=== PATIENT | female | born 1960 | race Caucasian/White ===

== ENCOUNTER 2016-08-02 17:47 | Emergency (ER) | payer OTHER ==
[~2016-08-02] VITALS: Ht 165.1 cm; Wt 77.1 kg
[~2016-08-02 17:47] MED LIST: ALPR0.5T PO; CYCL10TA2 PO; ESTR1TAB3 PO; OMEP40CA5 PO; RANI150T6 PO
[2016-08-02 18:09] VITALS: BP 134/90
--- NOTE | 2016-08-02 18:24 | PHYS DOC ---
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 Patient states that she has no other injuries or concerns at this time. She states that her last tetanus shot is been greater than 10 years. Review of Systems Review of Systems Constitutional: Denies fever or chills [] Eyes: Denies change in visual acuity, redness, or eye pain [] HENT: Denies nasal congestion or sore throat [] Respiratory: Denies cough or shortness of breath [] Cardiovascular: No additional information not addressed in HPI [] GI: Denies abdominal pain, nausea, vomiting, bloody stools or diarrhea [] : Denies dysuria or hematuria [] Musculoskeletal: Denies back pain or joint pain [] Integument: Denies rash or skin lesions [] Neurologic: Denies headache, focal weakness or sensory changes [] Endocrine: Denies polyuria or polydipsia [] Current Medications Current Medications Current Medications Medications (Trade) Dose Ordered Sig/Valeria Start Time Stop Time Status Last Admin Dose Admin Diphtheria/ Tetanus/Acell Pertussis (Boostrix) 0.5 ml ONCE ONCE 08/02/16 18:15 08/02/16 18:16 UNV Lidocaine/ Epinephrine (Xylocaine 1%-Epi 1:100,000) 20 ml 1X ONCE 08/02/16 18:15 08/02/16 18:16 UNV Silver Nitrate/ Potassium Nitrate 2 each 1X ONCE 08/02/16 18:15 08/02/16 18:16 UNV Allergies Allergies Allergies Coded Allergies Type Severity Reaction Last Updated Verified Iodine and Iodide Containing Produc Allergy Severe hives 04/21/14 Yes codeine Allergy Severe makes pain 04/21/14 Yes heparin Allergy Intermediate 07/04/15 Yes Physical Exam Physical Exam Constitutional: Well developed, well nourished, no acute distress, non-toxic appearance. HENT: Normocephalic, atraumatic, bilateral external ears normal, oropharynx moist, no oral exudates, nose normal. [] Eyes: PERRLA, EOMI, conjunctiva normal, no discharge. [] Neck: Normal range of motion, no tenderness, supple, no stridor. [] Cardiovascular:Heart rate regular rhythm, no murmur [] Lungs & Thorax: Bilateral breath sounds clear to auscultation [] Abdomen: Bowel sounds normal, soft, no tenderness, no masses, no pulsatile masses. [] Skin: Warm, dry, no erythema, no rash. [] Back: No tenderness, no CVA tenderness. [] Extremities: Right thumb with a 2 cm avulsion to the lateral aspect of the distal phalanx that extends minimally into the dermis. There is some punctate bleeding from 2 vessels. There is no involvement of the cuticle, nail or nailbed. There is no joint space involvement. Patient is able to flex and extend of the IPJ. Thumb is neurovascularly intact with capillary refill less than 2 seconds. Neurologic: Alert and oriented X 3, normal motor function, normal sensory function, no focal deficits noted. [] Psychologic: Affect normal, judgement normal, mood normal. [] Current Patient Data Vital Signs Vital Signs Date Time Temp Pulse Resp B/P Pulse Ox O2 Delivery O2 Flow Rate FiO2 08/02/16 18:09 91 16 95 Room Air EKG EKG [] Radiology/Procedures Radiology/Procedures Procedure note: Site of the punctate bleed/avulsion was anesthetized with 1% lidocaine with epinephrine. So nitrate stick was used to applied to the area the bleeding. Hemostasis was achieved. A nonstick dressing was applied with bulky bandaging over top of the dressing. Patient tolerated the procedure well. Course & Med Decision Making Course & Med Decision Making Pertinent Labs and Imaging studies reviewed. (See chart for details) [] Dragon Disclaimer Dragon Disclaimer This electronic medical record was generated, in whole or in part, using a voice recognition dictation system. Departure Departure Impression: Primary Impression: Laceration Disposition: 01 HOME, SELF-CARE Condition: IMPROVED Referrals: LEXIE ALAS MD (PCP) Patient Instructions: Deep Skin Avulsion, Diphtheria Toxoid; Tetanus Toxoid Adsorbed, DT, Td Additional Instructions: 1. Keep this dressing on for the next 2-3 days. Preferably for the next 3 days. Change the external dressing if it becomes wet. 2. You received a tetanus shot here in the emergency Department today. 3. Contact your primary care doctor's office in the morning to schedule follow- up appointment for wound check on Wednesday or Wednesday. LUCAS DALAL Aug 02, 2016 18:24
[2016-08-02] MEDS ORDERED: LIDOCAINE 1%/EPI 1:100,000 20 ML VIAL. IJ ONE (18:30)
[2016-08-02] MEDS ORDERED: DIPHTH,PERTUSS(ACELL),TET TOX 0.5 ML DISP.SYRIN. VAX IM ONE (18:30)
[2016-08-02] MEDS ORDERED: SILVER NITRATE STICK TP ONE (18:30)
== END 2016-08-02 18:58 | disposition home or self-care (01) ==
LOC: ER 17:47
DX: S61.011A Laceration without foreign body of right thumb without damage to nail, initial encounter (principal); K21.9 Gastro-esophageal reflux disease without esophagitis; K58.9 Irritable bowel syndrome, unspecified; Z88.8 Allergy status to other drugs, medicaments and biological substances; Z88.9 Allergy status to unspecified drugs, medicaments and biological substances; Z88.5 Allergy status to narcotic agent; W26.8XXA Contact with other sharp object(s), not elsewhere classified, initial encounter; Y93.89 Activity, other specified; Y92.89 Other specified places as the place of occurrence of the external cause; Y99.8 Other external cause status
CPT/HCPCS: 12001; 90471; 90715; 99283; J3490

== ENCOUNTER 2016-11-22 15:48 | Emergency (ER) | payer OTHER ==
[~2016-11-22] VITALS: Ht 165.1 cm; Wt 77.1 kg
[2016-11-22 16:15] VITALS: BP 146/85
[2016-11-22] MEDS ORDERED: SULF1TAB24 PO (16:44)
--- NOTE | 2016-11-22 16:45 | PHYS DOC ---
Past Medical History Past Medical History: GERD, IBS, Other Additional Past Medical Histor: esophageal spasms, herpes, R thumb numbness, anaphalaxsis Past Surgical History: Appendectomy, Cholecystectomy, Tonsillectomy, Tubal ligation, Other Additional Past Surgical Histo: ablation, bladder sling, LEAP, L knee Alcohol Use: Occasionally Drug Use: None Adult General Chief Complaint Chief Complaint: INSECT BITE HPI HPI Patient is a 55 year old female presents emergency department stating that something had bit her in her left posterior thigh area approximately 3-4 days ago. She states the area has been burning and itching and very irritated. She states the area has become increasingly red. Patient denies any drainage or discharge coming from the site. Patient denies any numbness or tingling coming from the lower extremity. Peripheral pulses are 2+ cap refill brisk less than 2 seconds. Patient's tetanus immunization is less than 2 years ago. Review of Systems Review of Systems Constitutional: Denies fever or chills [] Eyes: Denies change in visual acuity, redness, or eye pain [] HENT: Denies nasal congestion or sore throat [] Respiratory: Denies cough or shortness of breath [] Cardiovascular: No additional information not addressed in HPI [] GI: Denies abdominal pain, nausea, vomiting, bloody stools or diarrhea [] : Denies dysuria or hematuria [] Musculoskeletal: Denies back pain or joint pain [] Integument: Denies rash or skin lesions. Complaint of insect bite to the left posterior leg. Neurologic: Denies headache, focal weakness or sensory changes [] Endocrine: Denies polyuria or polydipsia [] Allergies Allergies Allergies Coded Allergies Type Severity Reaction Last Updated Verified Iodine and Iodide Containing Produc Allergy Severe hives 04/21/14 Yes codeine Allergy Severe makes pain 04/21/14 Yes heparin Allergy Intermediate 07/04/15 Yes tree nut Allergy Unknown 11/22/16 Yes Physical Exam Physical Exam Constitutional: Well developed, well nourished, no acute distress, non-toxic appearance. [] HENT: Normocephalic, atraumatic, bilateral external ears normal, oropharynx moist, no oral exudates, nose normal. [] Eyes: PERRLA, EOMI, conjunctiva normal, no discharge. [] Neck: Normal range of motion, no tenderness, supple, no stridor. [] Cardiovascular:Heart rate regular rhythm Lungs & Thorax: No respiratory distress noted Skin: Warm, dry, no erythema, no rash. Patient with redness approximate size of a baseball to the left posterior thigh. No drainage or induration noted. The area appears to be red warm to touch. Back: No tenderness Extremities: No tenderness, no cyanosis, no clubbing, ROM intact, no edema. [] Neurologic: Alert and oriented X 3, normal motor function, normal sensory function, no focal deficits noted. [] Psychologic: Affect normal, judgement normal, mood normal. [] Current Patient Data Vital Signs Vital Signs Date Time Temp Pulse Resp B/P (MAP) Pulse Ox O2 Delivery O2 Flow Rate FiO2 11/22/16 16:15 98.4 93 18 98 Room Air 98.4 EKG EKG [] Radiology/Procedures Radiology/Procedures [] Course & Med Decision Making Course & Med Decision Making Pertinent Labs and Imaging studies reviewed. (See chart for details) Patient was instructed to keep the area clean dry and cool. She was recommended Benadryl to help with itching and irritation. She was instructed this medication will cause drowsiness do not take any be alert and oriented. Recommended cleaning the site with soap and water and applying antibiotic ointment if the area she'll open and start draining. Patient will be placed on Bactrim. Signs symptoms to return back to emergency department been provided. Patient agrees with discharge instructions treatment regimens and follow-up recommendations. [] Dragon Disclaimer Dragon Disclaimer This electronic medical record was generated, in whole or in part, using a voice recognition dictation system. Departure Departure Impression: Primary Impression: Cellulitis Disposition: 01 HOME, SELF-CARE Condition: STABLE Referrals: LEXIE ALAS MD (PCP) Patient Instructions: Cellulitis, [id number] Additional Instructions: Keep the area clean and dry. Clean the site with soap and water and apply antibiotic ointment to the area if it should open up. Benadryl for itching and irritation. This medication will cause drowsiness do not take any be alert and oriented. Antibiotic as prescribed. Tylenol or ibuprofen for pain and discomfort. Keep the areas cool as possible. Follow-up to primary care physician next 3-5 days. Return back to emergency prior signs symptoms of become worse. Scripts Sulfamethoxazole/Trimethoprim (BACTRIM DS TABLET) 1 Each Tablet 1 TAB PO BID, #20 TAB Prov: STEPHEN SALAZAR APRN 11/22/16 STEPHEN SALAZAR APRN Nov 22, 2016 16:45
== END 2016-11-22 16:46 | disposition home or self-care (01) ==
LOC: ER 15:48
DX: L03.116 Cellulitis of left lower limb (principal); K21.9 Gastro-esophageal reflux disease without esophagitis; K58.9 Irritable bowel syndrome, unspecified; Z90.49 Acquired absence of other specified parts of digestive tract; Z96.0 Presence of urogenital implants; Z88.5 Allergy status to narcotic agent; Z88.8 Allergy status to other drugs, medicaments and biological substances; Z91.018 Allergy to other foods; W57.XXXA Bitten or stung by nonvenomous insect and other nonvenomous arthropods, initial encounter; Y93.89 Activity, other specified; Y92.89 Other specified places as the place of occurrence of the external cause; Y99.8 Other external cause status
CPT/HCPCS: 99283

== ENCOUNTER 2017-07-20 18:54 | Inpatient (IN) | payer OTHER ==
[2017-07-20 19:41] LABS: ADD MAN DIFF? NO
[2017-07-20 19:44] LABS: BASO # 0.1 x10^3/uL (0.0-0.2); BASO % 1 % (0-3); EOS # 0.1 x10^3/uL (0.0-0.7); EOS % 2 % (0-3); HEMOGLOBIN 14.2 g/dL (12.0-15.5); LYMPH # 2.7 x10^3/uL (1.0-4.8); LYMPH % 42 % (24-48); MEAN CORPUSCULAR HEMOGLOBIN 30 pg (25-35); MEAN CORPUSCULAR HGB CONC 35 g/dL (31-37); MEAN CORPUSCULAR VOLUME 87 fL (79-100); MONO # 0.4 x10^3/uL (0.0-1.1); MONO % 6 % (0-9); NEUT # 3.2 x10^3uL (1.8-7.7); NEUT % 49 % (31-73); PLATELET COUNT 282 x10^3/uL (140-400); RED BLOOD COUNT 4.73 x10^6/uL (3.50-5.40); RED CELL DISTRIBUTION WIDTH 13.8 % (11.5-14.5); WHITE BLOOD COUNT 6.5 x10^3/uL (4.0-11.0)
[2017-07-20 19:49] LABS: URINE HCG POC HCG NEGATIVE (Negative)
[2017-07-20 19:49] LABS: BILIRUBIN,URINE NEGATIVE (NEG); CLARITY,URINE CLEAR; GLUCOSE,URINE NEGATIVE (NEG); NITRITE,URINE NEGATIVE (NEG); PH,URINE 7.5; PROTEIN,URINE NEGATIVE (NEG-TRACE); UROBILINOGEN,URINE 0.2 mg/dL (0.2 mg/dL)
[2017-07-20] MEDS: FAMOTIDINE 20 MG/2 ML VIAL IVP (19:49)
[2017-07-20] MEDS: ASPIRIN CHEWABLE 81 MG TABLET. PO (19:49)
[2017-07-20] MEDS: LIDO:MAALOX:DONNATAL 1:1:1 15 ML SINGLE DOSE SWSW (19:49)
[2017-07-20] MEDS: IV NORMAL SALINE 1000ML BAG 1,000 ML IV (19:50)
[2017-07-20 19:57] LABS: COLOR,URINE STRAW
[2017-07-20 19:59] LABS: BACTERIA,URINE MANY /HPF (0-FEW); RBC,URINE 0 /HPF (0-2); SQUAMOUS EPITHELIAL CELL,UR MOD /LPF; WBC,URINE OCC /HPF (0-4)
[2017-07-20 20:02] LABS: TROPONINI < 0.017 ng/mL (0.000-0.055)
[2017-07-20 20:05] LABS: ANION GAP 9 (6-14); BLOOD UREA NITROGEN 12 mg/dL (7-20); BUN/CREATININE RATIO 12 (6-20); CALCIUM 8.6 mg/dL (8.5-10.1); CARBON DIOXIDE 27 mmol/L (21-32); CHLORIDE 106 mmol/L (98-107); GFR 57.6; GLUCOSE 100 mg/dL (70-99); POTASSIUM 3.6 mmol/L (3.5-5.1); SODIUM 142 mmol/L (136-145)
[2017-07-20 20:10] LABS: ALBUMIN 3.5 g/dL (3.4-5.0); ALK PHOS 54 U/L (46-116); ALT (SGPT) 31 U/L (14-59); AST (SGOT) 20 U/L (15-37); LIPASE 177 U/L (73-393); TOTAL BILIRUBIN 0.2 mg/dL (0.2-1.0); TOTAL PROTEIN 7.1 g/dL (6.4-8.2)
[2017-07-20] MEDS ORDERED: NITROGLYCERIN SUBLINGUAL 0.4 MG BOTTLE OF 25. SL (20:30)
[2017-07-20] MEDS ORDERED: ONDANSETRON PF 4 MG/2 ML VIAL. IV (20:30)
[2017-07-20] MEDS ORDERED: fentaNYL PF VIAL 100 MCG/2 ML VIAL IV (20:30)
[2017-07-20] MEDS ORDERED: ALPRAZolam 0.5 MG TABLET PO (20:45)
[2017-07-20] MEDS ORDERED: diphenhydrAMINE HCL 25 MG CAPSULE PO (20:45)
[2017-07-20] MEDS ORDERED: CALCIUM CARBONATE 500 MG TAB.CHEW PO (20:45)
[2017-07-20] MEDS ORDERED: MAG HYDROX/ALUMINUM HYD/SIMETH 30 ML ORAL.SUSP PO (20:45)
[2017-07-20] MEDS ORDERED: HYDROcodone/APAP 5/325MG 1 TAB TABLET PO (20:45)
[2017-07-20] MEDS ORDERED: cloNIDine HCL 0.1 MG TABLET PO (20:45)
[2017-07-20] MEDS ORDERED: NON FORMULARY ITEM (Ranitidine Hcl (Zantac) 1 TAB) PO (21:00)
[2017-07-20] MEDS ORDERED: FAMOTIDINE 20 MG TABLET. PO (21:00)
[2017-07-20] MEDS: CYCLOBENZAPRINE 10 MG TABLET. PO (22:15)
[2017-07-21 00:18] LABS: TROPONINI < 0.017 ng/mL (0.000-0.055)
[2017-07-21 02:34] LABS: ADD MAN DIFF? NO
[2017-07-21 02:35] LABS: BASO # 0.1 x10^3/uL (0.0-0.2); BASO % 1 % (0-3); EOS # 0.2 x10^3/uL (0.0-0.7); EOS % 3 % (0-3); HEMATOCRIT 38.1 % (36.0-47.0); HEMOGLOBIN 13.2 g/dL (12.0-15.5); LYMPH # 2.6 x10^3/uL (1.0-4.8); LYMPH % 45 % (24-48); MEAN CORPUSCULAR HEMOGLOBIN 30 pg (25-35); MEAN CORPUSCULAR HGB CONC 35 g/dL (31-37); MEAN CORPUSCULAR VOLUME 87 fL (79-100); MONO # 0.4 x10^3/uL (0.0-1.1); MONO % 7 % (0-9); NEUT # 2.6 x10^3uL (1.8-7.7); NEUT % 45 % (31-73); PLATELET COUNT 251 x10^3/uL (140-400); RED BLOOD COUNT 4.39 x10^6/uL (3.50-5.40); WHITE BLOOD COUNT 5.7 x10^3/uL (4.0-11.0)
[2017-07-21 02:52] LABS: ALBUMIN 2.9 g/dL (3.4-5.0); ALBUMIN/GLOBULIN RATIO 0.9 (1.0-1.7); ALK PHOS 45 U/L (46-116); ALT (SGPT) 26 U/L (14-59); ANION GAP 8 (6-14); AST (SGOT) 16 U/L (15-37); BLOOD UREA NITROGEN 12 mg/dL (7-20); BUN/CREATININE RATIO 13 (6-20); CALCIUM 7.9 mg/dL (8.5-10.1); CARBON DIOXIDE 26 mmol/L (21-32); CHLORIDE 109 mmol/L (98-107); CREATININE 0.9 mg/dL (0.6-1.0); GLUCOSE 107 mg/dL (70-99); POTASSIUM 3.5 mmol/L (3.5-5.1); SODIUM 143 mmol/L (136-145); TOTAL BILIRUBIN 0.1 mg/dL (0.2-1.0); TOTAL PROTEIN 6.1 g/dL (6.4-8.2)
[2017-07-21 02:59] LABS: TROPONINI < 0.017 ng/mL (0.000-0.055)
[2017-07-21] MEDS: PANTOPRAZOLE 40 MG TABLET.DR. PO (07:30)
[2017-07-21] MEDS: CYCLOBENZAPRINE 10 MG TABLET. PO ×3 (09:00→21:00)
[2017-07-21] MEDS: ESTROGEN/M-PROGEST 0.3/1.5MG TABLET. PO (09:00)
[2017-07-21] MEDS ORDERED: AMITRIPTYLINE HCL 25 MG TABLET. PO (09:45)
[2017-07-21 09:49] LABS: CHOLESTEROL 167 mg/dL (0-200); HDLC 53 mg/dL (40-60); LDLC 90 mg/dL (0-100); NON-HDL CHOLESTEROL 114 mg/dL (0-129); TRIGLYCERIDES 119 mg/dL (0-150); VLDLC 24 mg/dL (0-40)
[2017-07-21 09:50] LABS: CHOLESTEROL/HDL RATIO 3.2
[2017-07-21] MEDS: REGADENOSON 0.4 MG/5 ML DISP.SYRIN. IV (13:45)
[2017-07-21] MEDS: ACETAMINOPHEN 325 MG TABLET. PO (16:40)
[2017-07-22] MEDS ORDERED: ONDANSETRON PF 4 MG/2 ML VIAL. IV (07:00)
[2017-07-22] MEDS ORDERED: fentaNYL PF VIAL 100 MCG/2 ML VIAL IV ×2 (07:00)
[2017-07-22] MEDS ORDERED: LIDOCAINE 1% PF 2 ML VIAL. ID (07:00)
[2017-07-22] MEDS ORDERED: PROCHLORPERAZINE 10 MG/2 ML VIAL. IV (07:00)
[2017-07-22] MEDS: CYCLOBENZAPRINE 10 MG TABLET. PO ×2 (09:00→14:28)
[2017-07-22] MEDS: IV RINGERS,LACTATED 1000ML 1,000 ML IV (12:15)
[2017-07-22] MEDS ORDERED: LIDOCAINE 2% PF Vial for OR 5 ML VIAL. (12:21)
[2017-07-22] MEDS ORDERED: PROPOFOL 20 ML IV (12:21)
[2017-07-22] MEDS: ESTROGEN/M-PROGEST 0.3/1.5MG TABLET. PO (14:27)
[2017-07-22] MEDS: PANTOPRAZOLE 40 MG TABLET.DR. PO (14:27)
== END 2017-07-22 16:30 | disposition home or self-care (01) | DRG 880 ==
LOC: ER 18:54 → 5 SOUTH 20:21
PROC: 0DJ08ZZ Inspection of Upper Intestinal Tract, Via Natural or Artificial Opening Endoscopic (ICD-10-PCS; principal; 2017-07-22 12:31)
DX: F41.9 Anxiety disorder, unspecified (principal); D25.9 Leiomyoma of uterus, unspecified; K21.0 Gastro-esophageal reflux disease with esophagitis; R07.89 Other chest pain; K58.9 Irritable bowel syndrome, unspecified; K57.30 Diverticulosis of large intestine without perforation or abscess without bleeding; K29.70 Gastritis, unspecified, without bleeding; F32.9 Major depressive disorder, single episode, unspecified; G43.909 Migraine, unspecified, not intractable, without status migrainosus; K22.4 Dyskinesia of esophagus; Z90.49 Acquired absence of other specified parts of digestive tract; Z98.51 Tubal ligation status; Z88.5 Allergy status to narcotic agent; Z88.8 Allergy status to other drugs, medicaments and biological substances; Z82.49 Family history of ischemic heart disease and other diseases of the circulatory system; Z79.899 Other long term (current) drug therapy
CPT/HCPCS: 36415; 71045; 74176; 78452; 80053; 80061; 81001; 81025; 83690; 84484; 85025; 87086; 93005; 93017; 96361; 96374; 96376; 99285; 99285-25; A9500; J2704; J7030; J7120; S0028

== ENCOUNTER 2018-11-06 15:07 | Emergency (ER) | payer MEDICAID, MEDICARE, OTHER ==
[~2018-11-06] VITALS: Ht 165.1 cm; Wt 73.9 kg
[~2018-11-06 15:07] MED LIST changes: +AMIT25TA PO; -ESTR1TAB3 PO; +PREMPRO 0.3 MG1 EACH PO; +RANI-376 PO; -RANI150T6 PO; +SULF1TAB24 PO
[2018-11-06 15:15] VITALS: BP 134/60
[2018-11-06] MEDS ORDERED: DOXY100T PO (15:26)
--- NOTE | 2018-11-06 15:27 | PHYS DOC ---
Past Medical History Past Medical History: GERD, IBS, Other Additional Past Medical Histor: esophageal spasms, herpes, R thumb numbness, anaphalaxsis Past Surgical History: Appendectomy, Cholecystectomy, Tonsillectomy, Tubal ligation, Other Additional Past Surgical Histo: ablation, bladder sling, LEAP, L knee Alcohol Use: None Drug Use: None Adult General Chief Complaint Chief Complaint: LOWER EXT PAIN HPI HPI Patient is a 57 year old [f__sex] who presents with [] Review of Systems Review of Systems Constitutional: Denies fever or chills [] Eyes: Denies change in visual acuity, redness, or eye pain [] HENT: Denies nasal congestion or sore throat [] Respiratory: Denies cough or shortness of breath [] Cardiovascular: No additional information not addressed in HPI [] GI: Denies abdominal pain, nausea, vomiting, bloody stools or diarrhea [] : Denies dysuria or hematuria [] Musculoskeletal: Denies back pain or joint pain [] Integument: Denies rash or skin lesions [] Neurologic: Denies headache, focal weakness or sensory changes [] Endocrine: Denies polyuria or polydipsia [] All other systems were reviewed and found to be within normal limits, except as documented in this note. Allergies Allergies Allergies Coded Allergies Type Severity Reaction Last Updated Verified Iodine and Iodide Containing Produc Allergy Severe hives 07/22/17 Yes codeine Allergy Severe makes pain 07/22/17 Yes tree nut Allergy Severe 07/22/17 Yes heparin Allergy Intermediate 07/22/17 Yes Physical Exam Physical Exam Constitutional: Well developed, well nourished, no acute distress, non-toxic appearance. [] HENT: Normocephalic, atraumatic, bilateral external ears normal, oropharynx moist, no oral exudates, nose normal. [] Eyes: PERRLA, EOMI, conjunctiva normal, no discharge. [] Neck: Normal range of motion, no tenderness, supple, no stridor. [] Cardiovascular:Heart rate regular rhythm, no murmur [] Lungs & Thorax: Bilateral breath sounds clear to auscultation [] Abdomen: Bowel sounds normal, soft, no tenderness, no masses, no pulsatile masses. [] Skin: Warm, dry, no erythema, no rash. [] Back: No tenderness, no CVA tenderness. [] Extremities: No tenderness, no cyanosis, no clubbing, ROM intact, no edema. [] Neurologic: Alert and oriented X 3, normal motor function, normal sensory function, no focal deficits noted. [] Psychologic: Affect normal, judgement normal, mood normal. [] Current Patient Data Vital Signs Vital Signs Date Time Temp Pulse Resp B/P (MAP) Pulse Ox O2 Delivery O2 Flow Rate FiO2 11/06/18 15:15 98.3 80 18 134/60 (84) 96 Room Air 98.3 EKG EKG [] Radiology/Procedures Radiology/Procedures [] Course & Med Decision Making Course & Med Decision Making Pertinent Labs and Imaging studies reviewed. (See chart for details) [] Dragon Disclaimer Dragon Disclaimer This electronic medical record was generated, in whole or in part, using a voice recognition dictation system. Departure Departure Disposition: 01 HOME, SELF-CARE Condition: STABLE Referrals: LEXIE ALAS MD (PCP) Patient Instructions: Cellulitis, Insect Bite Additional Instructions: As we are uncertain as to what is causing the redness on your leg you are being provided with educational material on cellulitis and insect bites. Monitor the wounds for worsening symptoms and follow-up with your primary care physician for reevaluation or concerns. Scripts Doxycycline Hyclate (DOXYCYCLINE HYCLATE) 100 Mg Tablet 1 TAB PO BID, #14 TAB 0 Refills Prov: SALLIE RODRIGUEZ APRN 11/06/18 SALLIE RODRIGUEZ APRN Nov 06, 2018 15:27
[2018-11-06] MEDS ORDERED: MUPIROCIN 2 % TOPICAL CREAM 30GM TUBE. TP ONE (15:30)
== END 2018-11-06 15:43 | disposition home or self-care (01) ==
LOC: ER 15:07
DX: S70.361A Insect bite (nonvenomous), right thigh, initial encounter (principal); K21.9 Gastro-esophageal reflux disease without esophagitis; K58.9 Irritable bowel syndrome, unspecified; Z91.041 Radiographic dye allergy status; Z88.5 Allergy status to narcotic agent; Z91.018 Allergy to other foods; Z88.8 Allergy status to other drugs, medicaments and biological substances; W57.XXXA Bitten or stung by nonvenomous insect and other nonvenomous arthropods, initial encounter; Y93.89 Activity, other specified; Y92.89 Other specified places as the place of occurrence of the external cause; Y99.8 Other external cause status
CPT/HCPCS: 99283

== ENCOUNTER 2018-12-19 20:42 | Emergency (ER) | payer OTHER ==
[~2018-12-19] VITALS: Ht 165.1 cm; Wt 73.0 kg
[~2018-12-19 20:42] MED LIST changes: +DOXY100T PO
[2018-12-19 21:25] VITALS: BP 135/70
[2018-12-19] MEDS ORDERED: DOXY100T PO (21:32)
--- NOTE | 2018-12-19 21:32 | PHYS DOC ---
Past Medical History Past Medical History: GERD, IBS, Other Additional Past Medical Histor: esophageal spasms, herpes, R thumb numbness, anaphalaxsis Past Surgical History: Appendectomy, Cholecystectomy, Tonsillectomy, Tubal ligation, Other Additional Past Surgical Histo: ablation, bladder sling, LEAP, L knee Alcohol Use: None Drug Use: None Adult General Chief Complaint Chief Complaint: ABSCESS HPI HPI Patient is a 58 year old [f__sex] who presents with [] Review of Systems Review of Systems Constitutional: Denies fever or chills [] Eyes: Denies change in visual acuity, redness, or eye pain [] HENT: Denies nasal congestion or sore throat [] Respiratory: Denies cough or shortness of breath [] Cardiovascular: No additional information not addressed in HPI [] GI: Denies abdominal pain, nausea, vomiting, bloody stools or diarrhea [] : Denies dysuria or hematuria [] Musculoskeletal: Denies back pain or joint pain [] Integument: Denies rash or skin lesions [] Neurologic: Denies headache, focal weakness or sensory changes [] Endocrine: Denies polyuria or polydipsia [] All other systems were reviewed and found to be within normal limits, except as documented in this note. Allergies Allergies Allergies Coded Allergies Type Severity Reaction Last Updated Verified Iodine and Iodide Containing Produc Allergy Severe hives 07/22/17 Yes codeine Allergy Severe makes pain 07/22/17 Yes tree nut Allergy Severe 07/22/17 Yes heparin Allergy Intermediate 07/22/17 Yes Physical Exam Physical Exam Constitutional: Well developed, well nourished, no acute distress, non-toxic appearance. [] HENT: Normocephalic, atraumatic, bilateral external ears normal, oropharynx moist, no oral exudates, nose normal. [] Eyes: PERRLA, EOMI, conjunctiva normal, no discharge. [] Neck: Normal range of motion, no tenderness, supple, no stridor. [] Cardiovascular:Heart rate regular rhythm, no murmur [] Lungs & Thorax: Bilateral breath sounds clear to auscultation [] Abdomen: Bowel sounds normal, soft, no tenderness, no masses, no pulsatile masses. [] Skin: Warm, dry, no erythema, no rash. [] Back: No tenderness, no CVA tenderness. [] Extremities: No tenderness, no cyanosis, no clubbing, ROM intact, no edema. [] Neurologic: Alert and oriented X 3, normal motor function, normal sensory function, no focal deficits noted. [] Psychologic: Affect normal, judgement normal, mood normal. [] EKG EKG [] Radiology/Procedures Radiology/Procedures [] Course & Med Decision Making Course & Med Decision Making Pertinent Labs and Imaging studies reviewed. (See chart for details) [] Dragon Disclaimer Dragon Disclaimer This electronic medical record was generated, in whole or in part, using a voice recognition dictation system. Departure Departure Impression: Primary Impression: Cellulitis Additional Impression: Insect bite Disposition: HOME, SELF-CARE Condition: STABLE Referrals: LEXIE ALAS MD (PCP) Patient Instructions: Cellulitis, Insect Bite Additional Instructions: Apply the Bactroban ointment to affected area 2-3 times a day. If symptoms worsen or with concerns follow-up with your primary care physician for reevaluation and further care. Scripts Doxycycline Hyclate (DOXYCYCLINE HYCLATE) 100 Mg Tablet 1 TAB PO BID, #14 TAB 0 Refills Prov: SALLIE RODRIGUEZ APRN 12/19/18 Problem Qualifiers SALLIE RODRIGUEZ APRN Dec 19, 2018 21:32
== END 2018-12-19 22:08 | disposition home or self-care (01) ==
LOC: ER 20:42
DX: S70.261A Insect bite (nonvenomous), right hip, initial encounter (principal); L03.115 Cellulitis of right lower limb; K21.9 Gastro-esophageal reflux disease without esophagitis; K58.9 Irritable bowel syndrome, unspecified; Z90.89 Acquired absence of other organs; Z90.49 Acquired absence of other specified parts of digestive tract; Z98.51 Tubal ligation status; Z88.5 Allergy status to narcotic agent; Z91.041 Radiographic dye allergy status; Z91.018 Allergy to other foods; Z88.8 Allergy status to other drugs, medicaments and biological substances; W57.XXXA Bitten or stung by nonvenomous insect and other nonvenomous arthropods, initial encounter; Y93.89 Activity, other specified; Y92.89 Other specified places as the place of occurrence of the external cause; Y99.8 Other external cause status
CPT/HCPCS: 99283